=== PATIENT | female | born 1975 | race Hispanic/Latino ===

== ENCOUNTER 2024-03-26 17:15 | Emergency (ER) | payer SELFPAY ==
[~2024-03-26] VITALS: Ht 167.6 cm; Wt 52.2 kg
[2024-03-26 17:17] VITALS: BP 106/67; PULSE 54; RESP 20; TEMP 98.2
[2024-03-26] MEDS ORDERED: LACTATED RINGERS 1000ML 1,000 ML IV ONE (18:00)
--- NOTE | 2024-03-26 18:08 | NUR ---
PT TRANSFERRED TO [facility] AND PT STATES SHE WANTS TO LEAVE. PT IS REFUSING ALL TREATMENTS. DR BAIN MADE AWARE
--- NOTE | 2024-03-26 18:09 | ERN ---
General Chief Complaint: Syncope Stated Complaint: SYNCOPE Time Seen by MD: 17:16 Source: patient History of Present Illness Initial Comments PATIENT IS A 48-YEAR-OLD FEMALE COMING IN TO BE EVALUATED FOR A SYNCOPAL EPISODE. PATIENT STATES THAT WHILE EATING AT A [employer] SHE PASSED OUT. SHE ALSO STATES HE HAS A HISTORY OF SYNCOPE USUALLY OCCURS AFTER EATING SPICY MEALS. Allergies: Coded Allergies: No Known Allergies (Unverified Allergy, Unknown, 03/26/24) Past Medical History Past Medical History: No Pertinent History Past Surgical History: Other ROS Dictation CONSTITUTIONAL: NO CHILLS, NO FEVER, NO WEAKNESS, NO DIAPHORESIS, NO MALAISE. HEAD/FACE: NO SIGNS OF TRAUMA. EENT: NO EYE PAIN, NO BLURRED VISION, NO TEARING, NO DOUBLE VISION, NO EAR PAIN, NO EAR DISCHARGE, NO NOSE PAIN, NO NASAL CONGESTION, NO THROAT PAIN, NO THROAT SWELLING, NO MOUTH PAIN. RESPIRATORY: NO COUGH, NO ORTHOPNEA, NO SOB, NO STRIDOR, NO WHEEZING. CARDIOVASCULAR: NO CHEST PAIN, NO EDEMA, NO PALPITATIONS, NO SYNCOPE. GASTROINTESTINAL/ABDOMINAL: NO ABDOMINAL PAIN, NO CONSTIPATION, NO DIARRHEA, NO NAUSEA, NO VOMITING. GENITOURINARY: NO ABNORMAL DISCHARGE, NO DYSURIA, NO FREQUENT URINATION, NO HEMATURIA. NO COMPLAINTS OF PAIN IN THE GENITALS. MUSCULOSKELETAL: NO BACK PAIN, NO GOUT, NO JOINT PAIN, NO JOINT SWELLING, NO MUSCLE PAIN, NO MUSCLE STIFFNESS, NO NECK PAIN. INTEGUMENTARY: NO CHANGE IN COLOR, NO CHANGE IN HAIR/NAILS, NO DRYNESS, NO LESION, NO LUMPS, NO RASH. NEUROLOGICAL/PSYCH: NO ANXIETY, NOT DEPRESSED, NO EMOTIONAL PROBLEM, NO HEA DACHE, NO NUMBNESS, NO PRE-EXISTING DEFICIT, NO HISTORY OF SEIZURES, NO TREMORS, NO WEAKNESS. HEMATOLOGIC/LYMPHATIC: NOT ANEMIC, NO HISTORY OF BLOOD CLOTS, NO APPARENT BLEEDING, NO BRUISING, GLANDS NOT SWOLLEN. ALL SYSTEMS NEGATIVE, EXCEPT NOTED. Physical Exam Physical Exam Dictation VITAL SIGNS: REVIEWED. GENERAL APPEARANCE: ALERT, ORIENTED X3, NO ACUTE DISTRESS, OBESE. HEAD AND FACE: NON-TRAUMATIC. EYES: PERRL, PINK CONJUNCTIVAS, EYELID NO TRAUMA, ANTERIOR CHAMBER CLEAR. EARS: PINNAS INTACT AND NO SIGNS OF TRAUMA OR ERYTHEMA. EAR CANALS CLEAR AND NO DISCHARGE. TMS NO ERYTHEMA. NOSE: NO DISCHARGE, NO BLEEDING. OROPHARYNX: MOUTH NORMAL, TEETH NO CARIES, TONGUE PINK. PHARYNX CLEAR, NO ERYTHEMA. TONSILS NO EXUDATES, NO ABSCESSES NOTED. MUCOUS MEMBRANE MOIST. NECK: SUPPLE, NON-TENDER, NO THYROMEGALY, NO MASSES, NO JVD, NO BRUITS. BREAST: DEFERRED. CHEST: NO TENDERNESS, NO CREPITUS, NO PARADOXICAL MOVEMENT, NO RETRACTIONS. LUNGS: CLEAR, WELL-VENTILATED, SYMMETRIC, NO RALES, NO WHEEZING, NO RHONCHI, NO STRIDOR, GOOD BREATH SOUNDS BILATERALLY. HEART: REGULAR RATE, REGULAR RHYTHM, NO MURMUR, NO GALLOPS. VASCULAR: NO PERIPHERAL EDEMA. ABDOMEN: SOFT, POSITIVE BOWEL SOUNDS, NONDISTENDED, NO GUARDING, NONTENDER, NO REBOUND, NO MASSES NO HEPATOMEGALY, NO SPLENOMEGALY, NO MELLO'S SIGN, NO HERNIAS. RECTAL: DEFERRED. GENITAL: DEFERRED. NEUROLOGICAL: NORMAL SPEECH, GROSS MOTOR FUNCTION INTACT, GROSS SENSORY FUNCTION INTACT. MUSCULOSKELETAL: NECK NONTENDER, FULL RANGE OF MOTION, BACK NONTENDER, FULL RANGE OF MOTION. EXTREMITIES: NONTENDER, FULL RANGE OF MOTION. SKIN: COLOR PINK, DRY, NO TURGOR, NO RASH, NO LACERATIONS, NO ABRASIONS, NO CONTUSIONS. LYMPHATICS: DEFERRED. MDM MDM: DIFFERENTIAL DIAGNOSIS: SYNCOPE, WEAKNESS, SEPSIS, PATIENT IS A 48-YEAR-OLD FEMALE COMING IN TO BE EVALUATED SHE HAD A SYNCOPAL EPISODE. PER NURSING STAFF PATIENT ELOPED WITHOUT NOTIFYING ANYBODY. ED Course Orders Procedure Category Date Status Time Cbc With Differential LAB 03/26/24 Logged 17:38 Prothrombin Time With LAB 03/26/24 Logged INR 17:38 B-Type Natriuretic LAB 03/26/24 Logged Peptide 17:38 Chest 1vw RAD 03/26/24 Logged 17:38 12 Lead Ekg Tracing- EKG 03/26/24 Logged Technical 17:38 Lactated Ringers PHA 03/26/24 Complete 1000ml (Lactated 18:00 Magnesium LAB 03/26/24 Logged 17:38 ,Urine Test LAB 03/26/24 Logged 17:38 Creatine Kinase, Total LAB 03/26/24 Logged 17:38 Troponin I High LAB 03/26/24 Logged Sensitivity 17:38 Urinalysis Profile LAB 03/26/24 Logged 17:38 Partial LAB 03/26/24 Logged Thromboplastin Time 17:38 Basic Metabolic Panel LAB 03/26/24 Logged 17:38 Current Medications Medications (Trade) Dose Ordered Sig/Lev Route PRN Reason Start Time Stop Time Status Last Admin Dose Admin Lactated Ringer's 1,000 ml @ 0 mls/hr ONCE ONCE IV 03/26/24 18:00 03/26/24 18:01 DC Vital Signs Date Time Temp Pulse Resp B/P (MAP) Pulse Ox O2 Delivery O2 Flow Rate FiO2 03/26/24 17:17 98.2 54 20 106/67 99 Room Air DX & DISP Disposition: AMA Departure Impression: Primary Impression: Syncope Condition: Medical Screening Exam Referrals: SELF,REFERRAL (PCP) ROSA BAIN MD Mar 26, 2024 18:09
--- NOTE | 2024-03-26 18:29 | NUR ---
PT WANTING TO LEAVE AMA, ADVISED PT OF CONSEQUENCES OF LEAVING AMA. PT VERBALIZED UNDERSTANDING. SIGNED AMA FORM, DC IV, NAD NOTED
== END 2024-03-26 18:33 | disposition left against medical advice (07) ==
LOC: EDH 17:15
DX: R55 Syncope and collapse (principal)
CPT/HCPCS: 99283